=== PATIENT | male | born 1990 | race Caucasian/White ===

== ENCOUNTER 2023-04-06 22:33 | Inpatient (IN) | payer OTHER ==
[2023-04-07 03:14] VITALS: BMI 22.1
[2023-04-07] MEDS ORDERED: ONDANSETRON *ODT* 4 MG TABLET SL PRN (11:23)
[2023-04-07] MEDS ORDERED: BENZOCAINE/MENTHOL (CHLORASEPTIC ) LOZENGE MM PRN (11:23)
[2023-04-07] MEDS ORDERED: DICYCLOMINE HCL 10 MG CAPSULE PO PRN (11:23)
[2023-04-07] MEDS ORDERED: MAGNESIUM HYDROX 2400MG/30ML ORAL SUSPENSION 30 ML CUP PO PRN (11:23)
[2023-04-07] MEDS ORDERED: BENZONATATE 200 MG CAPSULE PO PRN (11:23)
[2023-04-07] MEDS ORDERED: LOPERAMIDE HCL 2 MG CAPSULE PO PRN (11:23)
[2023-04-07] MEDS ORDERED: guaiFENesin 600 MG TABLET.ER (FP) PO PRN (11:23)
[2023-04-07] MEDS ORDERED: BISMUTH SUBSALICYLATE 524 MG/30 ML PO PRN (11:23)
[2023-04-07] MEDS ORDERED: P-EPHED 60MG/TRIPROLIDI 2.5MG TABLET PO PRN (11:23)
[2023-04-07] MEDS ORDERED: MAG HYDROX/AL HYDROX/SIMETH 30 ML UNIT-DOSE CUP PO PRN (11:23)
[2023-04-07] MEDS ORDERED: IBUPROFEN 400 MG TABLET (FP) PO PRN (11:23)
[2023-04-07] MEDS ORDERED: POLYETHYLENE GLYCOL (HEALTHYLAX) 3350 17 GM PACKET PO PRN (11:23)
[2023-04-07] MEDS ORDERED: ACETAMINOPHEN 325 MG TABLET (FP) PO PRN (11:23)
[2023-04-07] MEDS ORDERED: chlordiazePOXIDE HCL 25 MG CAPSULE ONE (11:58)
[2023-04-07] MEDS: chlordiazePOXIDE HCL 25 MG CAPSULE PO SCH (12:09)
[2023-04-07] MEDS: NICOTINE POLACRILEX 2 MG LOZENGE BC PRN (13:56)
[2023-04-07] MEDS: METHOCARBAMOL 500 MG TABLET PO PRN (19:21)
[2023-04-07] MEDS: chlordiazePOXIDE HCL 25 MG CAPSULE PO PRN (20:14)
[2023-04-07] MEDS: MELATONIN 5 MG TABLETS PO SCH (22:09)
[2023-04-07] MEDS: THIAMINE HCL 100 MG TABLET (FP) PO SCH (22:09)
[2023-04-08] MEDS: PRENATAL VITAMINS W/ FOLIC ACID TABLET (FP) PO SCH (10:06)
[2023-04-08 11:37] LABS: HEMATOCRIT 40.9 % (35.4-49); MCH 31.3 pg (25.7-33.7); MCHC 34.2 g/dl (32.0-35.9); MEAN CELL VOLUME 91.5 fl (80-96); MEAN PLT VOLUME 8.4 fl (7.5-11.1); PLATELET COUNT 291 10^3/uL (134-434); RBC 4.46 M/mm3 (4.00-5.60); RDW 14.2 % (11.9-15.9); WHITE BLOOD COUNT 4.5 K/mm3 (4.0-10.0)
[2023-04-08 11:39] LABS: POTASSIUM 4.5 mmol/L (3.5-5.1)
[2023-04-08 11:40] LABS: CALCIUM 9.5 mg/dL (8.5-10.1)
[2023-04-08 11:41] LABS: ALBUMIN 3.9 g/dl (3.4-5.0); BLOOD UREA NITROGEN 11.5 mg/dL (7-18)
[2023-04-08 11:44] LABS: CREATININE 0.8 mg/dL (0.55-1.3)
[2023-04-08 11:46] LABS: BILIRUBIN,TOTAL 0.6 mg/dL (0.2-1); TOT PROT 7.5 g/dl (6.4-8.2)
[2023-04-08 13:53] VITALS: BP 135/72; PULSE 101; RESP 20; TEMP 98
[2023-04-08] MEDS: PENICILLIN G BENZATHINE 2,400,000 UNIT/4 ML PFS IM ONE (14:25)
[2023-04-08] MEDS: IBUPROFEN 600 MG TABLET (FP) PO PRN (14:30)
[2023-04-08] MEDS: FLUoxetine HCL 10 MG CAPSULE PO ONE (14:51)
[2023-04-09] MEDS ORDERED: chlordiazePOXIDE HCL 25 MG CAPSULE PO SCH (05:00)
[2023-04-09] MEDS ORDERED: FLUoxetine HCL 10 MG CAPSULE PO SCH (10:00)
[2023-04-10] MEDS ORDERED: chlordiazePOXIDE HCL 10 MG CAPSULE PO PRN
[2023-04-10] MEDS ORDERED: chlordiazePOXIDE HCL 10 MG CAPSULE PO SCH (05:00)
[2023-04-11] MEDS ORDERED: chlordiazePOXIDE HCL 10 MG CAPSULE PO SCH (05:00)
[2023-04-12] MEDS ORDERED: chlordiazePOXIDE HCL 10 MG CAPSULE PO ONE (05:00)
== END 2023-04-08 18:15 | disposition left against medical advice (07) | DRG 770 ==
LOC: YASAS 22:33 → Y6N 04-07 12:11
PROVIDERS: ADMIT Allergy & Immunology; ATTEND Surgery
PROC: HZ2ZZZZ Detoxification Services for Substance Abuse Treatment (ICD-10-PCS; principal; 2023-04-07)
DX: F10.230 Alcohol dependence with withdrawal, uncomplicated (principal); F17.210 Nicotine dependence, cigarettes, uncomplicated; F32.9 Major depressive disorder, single episode, unspecified; Z86.19 Personal history of other infectious and parasitic diseases; Z88.8 Allergy status to other drugs, medicaments and biological substances; Z59.02 Unsheltered homelessness
CPT/HCPCS: 36415; 80053; 85027; 86593; 86780; 87635; 87811; 93005; 93010

== ENCOUNTER 2024-09-25 08:15 | Inpatient (IN) | payer OTHER ==
[2024-09-25 08:40] VITALS: BMI 23.6
[2024-09-25] MEDS ORDERED: BENZONATATE 200 MG CAPSULE PO PRN (09:20)
[2024-09-25] MEDS ORDERED: ACETAMINOPHEN 325 MG TABLET (FP) PO PRN (09:20)
[2024-09-25] MEDS ORDERED: guaiFENesin 600 MG TABLET.ER (FP) PO PRN (09:20)
[2024-09-25] MEDS ORDERED: DICYCLOMINE HCL 10 MG CAPSULE PO PRN (09:20)
[2024-09-25] MEDS ORDERED: METHOCARBAMOL 500 MG TABLET PO PRN (09:20)
[2024-09-25] MEDS ORDERED: MAG HYDROX/AL HYDROX/SIMETH 30 ML UNIT-DOSE CUP PO PRN (09:20)
[2024-09-25] MEDS ORDERED: BISMUTH SUBSALICYLATE 524 MG/30 ML PO PRN (09:20)
[2024-09-25] MEDS ORDERED: ONDANSETRON *ODT* 4 MG TABLET SL PRN (09:20)
[2024-09-25] MEDS ORDERED: BENZOCAINE/MENTHOL (CHLORASEPTIC ) LOZENGE MM PRN (09:20)
[2024-09-25] MEDS ORDERED: NALOXONE (NARCAN) HCL 4 MG/0.1 ML SPRAY NS PRN (09:20)
[2024-09-25] MEDS ORDERED: LOPERAMIDE HCL 2 MG CAPSULE PO PRN (09:20)
[2024-09-25] MEDS: PRENATAL VITAMINS W/ FOLIC ACID TABLET (FP) PO SCH (10:06)
[2024-09-25] MEDS: NALTREXONE HCL 50 MG TABLET PO ONE (10:07)
[2024-09-25] MEDS: NICOTINE 7 MG/24 HOURS TOPICAL PATCH TD SCH (10:09)
[2024-09-25] MEDS: MELATONIN 5 MG TABLETS PO SCH (22:24)
[2024-09-25] MEDS: THIAMINE 100 MG TABLET PO SCH (22:24)
[2024-09-26] MEDS: NALTREXONE HCL 50 MG TABLET PO SCH (09:03)
[2024-09-26] MEDS: MAGNESIUM HYDROX 2400MG/30ML ORAL SUSPENSION 30 ML CUP PO PRN (09:03)
[2024-09-26] MEDS: POLYETHYLENE GLYCOL (HEALTHYLAX) 3350 17 GM PACKET PO PRN (10:55)
[2024-09-26 13:19] LABS: MCHC 32.7 g/dl (32.3-36.5); MEAN CELL VOLUME 94.1 fl (79.0-92.2); MEAN PLT VOLUME 11.1 fl (9.4-12.4); RDW 12.8 % (12.0-15.6)
[2024-09-26 13:44] LABS: GLUCOSE,RANDOM 95.0 mg/dL (74-106)
[2024-09-26 13:45] LABS: CO2 29.0 mmol/L (21-32)
[2024-09-26 13:48] LABS: CREATININE 0.9 mg/dL (0.55-1.3); SGOT/AST 73.0 U/L (15-37); SGPT/ALT 25.0 U/L (13-61)
[2024-09-26 13:50] LABS: TOT PROT 6.8 g/dl (6.4-8.2)
[2024-09-26 13:51] LABS: ALK PHOS 53.0 U/L (45-117)
[2024-09-27] MEDS: IBUPROFEN 600 MG TABLET (FP) PO PRN (11:07)
[2024-09-27] MEDS: NICOTINE POLACRILEX 2 MG GUM BUC PRN (15:41)
[2024-09-27] MEDS: IBUPROFEN 400 MG TABLET (FP) PO PRN (19:01)
[2024-09-27] MEDS: hydrOXYzine PAMOATE 25 MG CAPSULE (FP) PO PRN (19:55)
[2024-09-29 07:00] VITALS: RESP 16; TEMP 97.5
[2024-09-29 09:06] VITALS: BP 111/70; PULSE 89
== END 2024-09-29 09:00 | disposition home or self-care (01) | DRG 775 ==
LOC: YASAS 08:15 → Y6N 09:39
PROVIDERS: ADMIT Allergy & Immunology; ATTEND Counselor Addiction (Substance Use Disorder)
PROC: HZ2ZZZZ Detoxification Services for Substance Abuse Treatment (ICD-10-PCS; principal; 2024-09-25)
DX: F10.230 Alcohol dependence with withdrawal, uncomplicated (principal); Z59.01 Sheltered homelessness; F17.210 Nicotine dependence, cigarettes, uncomplicated; F33.9 Major depressive disorder, recurrent, unspecified
CPT/HCPCS: 36415; 80053; 80305; 80307; 85027; 86593; 86780; 93005; 93010